=== PATIENT | male | born 1970 ===

== ENCOUNTER 2018-02-12 07:52 | Emergency (ER) | payer OTHER ==
[~2018-02-12] VITALS: Ht 175.3 cm; Wt 108.9 kg
[~2018-02-12 07:52] MED LIST: DICLOFENAC POTA50 MG PO; DOXYCYCLINE HY100 MG PO
[2018-02-12] MEDS ORDERED: GLUCOPHAGE XR500 MG (08:00)
[2018-02-12] MEDS ORDERED: METFORMIN HCL500 MG PO (14:20)
== END 2018-02-12 14:46 | disposition home or self-care (01) ==
LOC: ER 07:52
DX: R73.9 Hyperglycemia, unspecified (principal)

== ENCOUNTER → 2018-02-24 | Emergency (ER) | payer OTHER ==
[~2018-02-24] VITALS: Ht 172.7 cm; Wt 108.9 kg
[~2018-02-24] MED LIST changes: +GLUCOPHAGE XR500 MG; +JANUMET 50-1,01 EACH; +METFORMIN HCL500 MG PO
== END | disposition left against medical advice (07) ==
LOC: ER 10:52
DX: Z53.20 Procedure and treatment not carried out because of patient's decision for unspecified reasons (principal)